=== PATIENT | female | born 1970 ===

== ENCOUNTER 2018-09-03 09:42 | Emergency (ER) | payer SELFPAY ==
[2018-09-03 10:03] VITALS: BP 126/75; PULSE 83; RESP 18; TEMP 98.8
[2018-09-03 10:04] VITALS: BMI 31.6
[2018-09-03 10:09] VITALS: O2SAT 98
[2018-09-03] MEDS ORDERED: PROPARACAINE/FLUORESCEIN SOD 100 DROP/5 ML BOTTLE OS STA (10:29)
[2018-09-03] MEDS ORDERED: PROPARACAINE/FLUORESCEIN SOD 100 DROP/5 ML BOTTLE ONE (10:35)
--- NOTE | 2018-09-03 10:47 | ED PDOC ---
HPI: Eye Injury/Pain Time Seen by Provider: 09/03/18 10:39 Chief Complaint (Nursing): Eye Problem Additional Complaint(s): 48 yo female patient present to the ED c/o left eye redness and itchiness. Patient states she underwent pterygium surgery last Monday and this morning she noticed her eye is red with "some blood inside". She denies fever, chills, loss of vision or blurred vision, no eye pain, discharge, headache. She has been applying abx ointment TID as per eye doctor. 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 PMD: at [facility]. Past Medical History Vital Signs: Last Vital Signs Temp 98.8 F 09/03/18 10:02 Pulse 83 09/03/18 10:02 Resp 18 09/03/18 10:02 BP 126/75 09/03/18 10:02 Pulse Ox 98 09/03/18 10:06 - Medical History PMH: Anemia, Anxiety, Depression Denies: Alzheimer's Disease, Arthritis, Asthma, Atrial Fibrillation, Bipolar Disorder, Bronchitis, CAD, Cardia Arrhythmia, CHF, COPD, Crohn's Disease, Dementia, Diverticulitis, Emphysema, Fractures, Gastritis, Gall Bladder Disease, HIV, HTN, Hypercholesterolemia, Hyperthyroidism, Hypothyroidism, Kidney Stones, Migraine, Mitral Valve Prolapse, Multiple Sclerosis, Osteoporosis, Pancreatitis, Paranoia, Parkinson's Disease, Peripheral Edema, Pneumonia, Post Traumatic Stress Disorder, Pulmonary Embolism, Chronic Kidney Disease, Rheumatoid Arthritis, Schizophrenia, Seizures, Sickle Cell Disease, Sexually Transmitted Disease, Sleep Apnea, TIA - Surgical History Surgical History: Denies: Appendectomy, CABG, Carotid Endarterectomy, Cholecystectomy, Coronary Stent, Pacemaker, Tonsillectomy - Family History Family History: States: Unknown Family Hx - Home Medications Home Medications: Ambulatory Orders Medication Instructions Recorded Ibuprofen [Motrin Tab] 800 mg PO Q8 PRN 05/05/15 - Allergies Allergies/Adverse Reactions: Allergies Allergy/AdvReac Type Severity Reaction Status Date / Time peach Allergy Mild RASH Verified 09/03/18 10:05 pear Allergy Mild RASH Verified 09/03/18 10:05 Physical Exam - Reviewed Vital Signs Reviewed: Yes - Physical Exam Appears: Positive for: No Acute Distress Head Exam: Positive for: NORMAL INSPECTION Eye Exam: Positive for: EOMI, PERRL, Other (Extensive L conjunctival hemorrhage, no tenderness or discharge appreciated). Negative for: Nystagmus, Periorbital swelling, Periorbital tenderness Cardiovascular/Chest: Positive for: Regular Rate, Rhythm. Negative for: Tachyc ardia Respiratory: Positive for: Normal Breath Sounds Gastrointestinal/Abdominal: Positive for: Soft. 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 Plan -- Visual acuity -- fluorescin and Wood's lamp exam Wood's lamp: no corneal lesions noted, surgery scar noted clean Disposition - Clinical Impression Clinical Impression: Conjunctival hemorrhage of left eye - Patient ED Disposition Is Patient to be Admitted: No - Disposition Referrals: [facility] [Outside] Disposition: Routine/Home Disposition Time: 11:14 Condition: STABLE Additional Instructions: f/u with Ophthalmology on Monday09/05/18 Continue abx ointment TID do not rub or touch your eye Return if worsening or new symptoms Forms: [employer] (Turkish), [facility] ED School/Work Excuse
== END 2018-09-03 11:27 | disposition home or self-care (01) ==
LOC: H.ER 09:42
DX: H11.32 Conjunctival hemorrhage, left eye (principal); Z86.59 Personal history of other mental and behavioral disorders